=== PATIENT | female | born 1945 | race Caucasian/White ===

== ENCOUNTER → 2016-12-15 | Day surgery (SDC) | payer OTHER ==
[~2016-12-15] MED LIST: ACTOS PO; ASPIRIN PO; ASPIRIN81 M1 PO; ASPIRIN81 M2 PO; BENICAR HCT 20-1 TA1 PO; FLEXERIL PO; FLEXERIL10 MG PO; GRIS-PEG250 MG PO; HYDROCHLOROTH12.5 MG PO; HYDROCODON-ACE1 EAC5 PO; IBUPROFEN PO; IBUPROFEN800 MG PO; LEVOXYL0.137 MG PO; LEVOXYL112 MC1 PO; LIPITOR40 MG PO; LORTAB 7.5-5001 TAB PO; LOSARTAN POTASS25 MG PO; LOSARTAN-HCTZ1 EACH PO; MELOXICAM15 MG PO; METFORMIN HCL500 M1 PO; METFORMIN PO; MULTI VITAMIN1 EACH PO; PANTOPRAZOLE SO40 MG; PAXIL PO; PAXIL30 MG PO; PRILOSEC PO; PRILOSEC20 M1 PO; ROBAXIN PO; ROPINIROLE HCL1 MG PO; SIMVASTATIN20 MG PO; SYNTHROID PO; TIZANIDINE HCL2 M1 PO; VITAMIN B122500 MCG; VITAMIN D31000 UNI1 PO; VOLTAREN50 MG PO; ZESTORETIC 20/21 TAB PO; ZOCOR PO; [UNRECOGNIZED DRUG - OTHER]
--- NOTE | ~2016-12-15 | OR ---
Unit #: [id number] #: [id number] Patient: CHRIS CORTÉS [id number] [address] [place], [place] [address] [id number] O MR#: [id number] NAME: CHRIS CORTÉS ROOM: Date of Procedure: 12/15/2016 Admission Date: 12/15/2016 Surgeon: Fer Simmons M.D. : 1945 Attending Physician: Fer Simmons M.D. Referring Physician: Fer Simmons M.D. Primary Care Physician: Liban German M.D. OPERATIVE REPORT JOB NOTE: CC: DR. GERMAN PROCEDURES PERFORMED Colonoscopy with snare polypectomy. INDICATIONS FOR PROCEDURE History of colon polyps. MEDICATIONS Monitored anesthesia. POSTOPERATIVE FINDINGS 1. Transverse colon polyp, 6 mm, snared and sent for histopathology. 2. Previous polypectomy site in ascending colon was noted and shows no recurrent or remnant polyp. PLAN Repeat colonoscopy in 3 years because of history of recent polyp with high-grade dysplasia. DESCRIPTION OF PROCEDURE The patient was explained of the procedure, risks, and benefits along with risks and benefits of anesthesia. She was brought to the endoscopy room. Propofol anesthesia was given. Rectal exam was done, which was normal. Colonoscope was lubricated, passed up the rectum, advanced under direct vision all the way to cecum. Cecum was identified by ileocecal valve and appendiceal orifice. I then started to pull the scope out carefully looking. Previous polypectomy site in ascending colon was carefully visualized. No remnant or recurrent polyp was seen. About 6 mm polyp seen in transverse colon was snared and sent for histopathology. I continued to pull the scope out. I retroflexed in the rectum, small hemorrhoids seen. Scope was gently pulled out. She tolerated it well. No major complications were seen. Dictated by... Phan Isbell/geoff TD: 12/15/2016 23:12 JOB #: [id number] Unit #: [id number] #: [id number] Patient: CHRIS CORTÉS OPERATIVE REPORT Page 1 of 1 X Fer Simmons MD PROCEDURE OPERATIVE NOTE
== END | disposition home or self-care (01) ==
LOC: COPS 07:12
DX: Z12.11 Encounter for screening for malignant neoplasm of colon (principal); D12.3 Benign neoplasm of transverse colon; I10 Essential (primary) hypertension; E11.9 Type 2 diabetes mellitus without complications; E78.5 Hyperlipidemia, unspecified; K21.9 Gastro-esophageal reflux disease without esophagitis; F41.9 Anxiety disorder, unspecified; F32.9 Major depressive disorder, single episode, unspecified; Z87.01 Personal history of pneumonia (recurrent); Z79.82 Long term (current) use of aspirin; Z79.891 Long term (current) use of opiate analgesic; Z79.899 Other long term (current) drug therapy; Z90.49 Acquired absence of other specified parts of digestive tract; Z96.653 Presence of artificial knee joint, bilateral; Z98.890 Other specified postprocedural states
CPT/HCPCS: 82947; 88305; J2250

== ENCOUNTER → 2017-04-01 | Day surgery (SDC) | payer OTHER ==
--- NOTE | ~2017-04-01 | OR ---
Unit #: [id number] #: [id number] Patient: CHRIS CORTÉS [id number] [address] [address] [id number] O MR#: [id number] NAME: CHRIS CORTÉS ROOM: Date of Procedure: 04/01/2017 Admission Date: 04/01/2017 Surgeon: Marvin Mosher M.D. : 1945 Attending Physician: Marvin Mosher M.D. Primary Care Physician: Corina López OPERATIVE REPORT PREOPERATIVE DIAGNOSES Gastroesophageal reflux, postprandial dyspepsia, retrosternal ascending heartburn. PROCEDURES PERFORMED Upper gastrointestinal endoscopy and biopsy. POSTOPERATIVE DIAGNOSES 1. The patient had moderate prepyloric antral erosive gastritis. 2. Grade 1 distal erosive esophagitis. 3. Rest of examination up to third part of duodenum was normal. RECOMMENDATIONS Pantoprazole 40 mg p.o. daily. SEDATION USED MAC. DESCRIPTION OF PROCEDURE Following detailed explanation of the potential risks and complications of an upper endoscopy, namely perforation, bleeding, and complications related to sedation, the patient was brought to GI lab and laid in the left lateral decubitus position. Lubricated tip of the Olympus video upper endoscope was passed through bite block into the proximal esophagus under direct vision. The entire esophageal mucosa was examined. The patient was noted to have grade 1 distal erosive esophagitis. The scope was then advanced into the gastric cavity and the latter was insufflated. Mucosa of the fundus, body, and antrum examined. Moderate prepyloric antral erythema and erosions noted indicating antral gastritis. Pylorus was intubated with visualization of the normal duodenal bulb and second and third part of the duodenum. Upon withdrawal and retroflexion, incisura, cardia, and greater curve examined and biopsy obtained from the antrum for CLOtest. The scope was then withdrawn in the distal esophagus. Entire esophageal mucosa was examined all the way up to pharynx. No additional findings noted. The patient tolerated the procedure without any postprocedure complications. Dictated by... Marvin Mosher M.D. Unit #: [id number] #: [id number] Patient: CHRIS CORTÉS ERLINDA/geoff TD: 04/01/2017 16:52 JOB #: [id number] CC: Mary/laly Please Delete OPERATIVE REPORT Page 1 of 1 X Marvin Mosher MD PROCEDURE OPERATIVE NOTE
== END | disposition home or self-care (01) ==
LOC: COPS 12:49
DX: K29.00 Acute gastritis without bleeding (principal); K20.8 Other esophagitis; F32.9 Major depressive disorder, single episode, unspecified; E03.9 Hypothyroidism, unspecified; E11.9 Type 2 diabetes mellitus without complications; I10 Essential (primary) hypertension; E78.5 Hyperlipidemia, unspecified; M48.00 Spinal stenosis, site unspecified; K21.0 Gastro-esophageal reflux disease with esophagitis; Z79.84 Long term (current) use of oral hypoglycemic drugs; Z79.899 Other long term (current) drug therapy; Z79.891 Long term (current) use of opiate analgesic; Z79.82 Long term (current) use of aspirin; Z79.1 Long term (current) use of non-steroidal anti-inflammatories (NSAID); Z90.49 Acquired absence of other specified parts of digestive tract; Z96.643 Presence of artificial hip joint, bilateral; Z98.1 Arthrodesis status; Z98.890 Other specified postprocedural states
CPT/HCPCS: 82947; 87077